=== PATIENT | female | born 1950 | race Caucasian/White ===

== ENCOUNTER 2023-11-07 07:23 | Day surgery (SDC) | payer MEDICARE ==
[2023-11-06 15:47] VITALS: BMI 17.2
[~2023-11-07 07:23] MED LIST: EPINEPHrine 0.3 MG in Ophthalmic Irrigation Solution 500 ML IRR SCH
[2023-11-07] MEDS ORDERED: fentaNYL 50 mcg/mL 1 mL Vial ONE (09:16)
[2023-11-07] MEDS ORDERED: Midazolam HCl 2 mg/2 ml Vial ONE (09:16)
[2023-11-07] MEDS ORDERED: Triamcinolone 40 MG/ML VIAL ONE (09:27)
[2023-11-07] MEDS ORDERED: Bupivacaine 0.75% 10 ML VIAL ONE (09:27)
[2023-11-07] MEDS ORDERED: Lidocaine 4% PF 5 ML AMP ONE ×2 (09:27)
[2023-11-07] MEDS ORDERED: Indocyanine Green 25 MG/10 ML VIAL ONE (09:27)
[2023-11-07] MEDS ORDERED: Maxitrol 0.1% Opth Oint 3.5 GM TUBE ONE (09:27)
[2023-11-07] MEDS ORDERED: CEFAZOLIN 1 GM VIAL ONE (09:27)
[2023-11-07] MEDS ORDERED: PROPOFOL 200 MG/20 ML VIAL ONE (09:27)
== END 2023-11-07 10:45 | disposition home or self-care (01) ==
LOC: SDC 07:23
PROVIDERS: ATTEND Ophthalmology Retina Specialist
PROC: 08T53ZZ Resection of Left Vitreous, Percutaneous Approach (ICD-10-PCS; principal; 2023-11-07)
DX: H35.372 Puckering of macula, left eye (principal)
CPT/HCPCS: 67041; J0171; J2250; J3010; J0690; J2704; J3301; J3490